=== PATIENT | female | born 1985 | race Two or more races ===

== ENCOUNTER 2023-04-20 05:19 | Day surgery (SDC) | payer MEDICARE, MEDICAID ==
[2023-04-18 14:43] LABS: BASOPHILS # (AUTO) 0.1 X10'3 (0-0.2); EOSINOPHILS # (AUTO) 0.1 X10'3 (0-0.9); EOSINOPHILS % (AUTO) 1.8 % (0-6); LYMPHOCYTES # (AUTO) 1.7 X10'3 (1.1-4.8); LYMPHOCYTES % (AUTO) 22.5 % (21-51); MEAN CORPUSCULAR HEMOGLOBIN 28.5 PG (27.0-31.0); MEAN CORPUSCULAR HGB CONC 31.7 g/dL (33.0-36.5); MEAN CORPUSCULAR VOLUME 89.9 FL (78-98); MEAN PLATELET VOLUME 8.1 FL (7.4-10.4); MONOCYTES # (AUTO) 0.6 X10'3 (0-0.9); MONOCYTES % (AUTO) 7.8 % (2-12); NEUTROPHILS # (AUTO) 5.1 X10'3 (1.8-7.7); NEUTROPHILS % (AUTO) 66.9 % (42-75); PRE OP HEMATOCRIT 33.1 % (35.0-45.0); PRE OP PLATELET COUNT 276 X10'3 (140-440); PRE OP WHITE BLOOD COUNT 7.7 10'3 (4.8-10.8); RED BLOOD COUNT 3.68 X10'6 (4.20-5.60); RED CELL DISTRIBUTION WIDTH 16.2 % (11.5-14.5)
[2023-04-18 14:47] LABS: PRE OP HEMOGLOBIN 10.5 g/dL (12.0-16.0)
[2023-04-18 14:53] LABS: ALBUMIN 3.3 G/DL (3.4-5.0); ALBUMIN/GLOBULIN RATIO 0.7 (1.1-1.5); ALKALINE PHOSPHATASE 145 IU/L (46-116); BLOOD UREA NITROGEN 40 MG/DL (7-18); BUN/CREATININE RATIO 22.6 (10.0-20.0); CHLORIDE 106 MMOL/L (99-107); CREATININE 1.77 MG/DL (0.40-0.90); PRE OP ALT 20 U/L (30-65); PRE OP ANION GAP 9 (8-16); PRE OP AST 17 U/L (10-37); PRE OP BILIRUB, TOTAL 0.4 MG/DL (0.0-1.0); PRE OP GLUCOSE 92 MG/DL (70-104); PRE OP POTASSIUM 4.3 MMOL/L (3.4-5.1); PRE OP SODIUM 139 MMOL/L (135-145); TOTAL CARBON DIOXIDE 24.3 MMOL/L (24-32); eGFR 32 ML/MIN
[~2023-04-20] VITALS: Ht 175.3 cm; Wt 71.9 kg
[2023-04-20] VITALS (13 sets, daily range): BP systolic 130–178; BP diastolic 93–108; PULSE 66–70; RESP 12–17; TEMP 97.2; O2SAT 94–100
[~2023-04-20 05:19] MED LIST: FAMO20TA8 PO; GABA300C PO; HYDR-4069 PO; INSU100I31 SQ; METO25TA6 PO; METO5TAB98 PO; MYCO250C46 PO; NOVLG SQ; PANT40TA54 PO; PRAV20TA4 PO; PRED5TAB PO; PROC10TA97 PO; TACR1CAP24 PO; VENL75CA61 PO; ringers solution, lacted 1,000 ML IV SCH
[2023-04-20] MEDS ORDERED: cefazolin 2gm/D5W 100mL 100 ML IV ONE (05:30)
[2023-04-20] MEDS ORDERED: DOCUMENT DATE & TIME OF BETA-BLOCKER PO ONE (05:30)
[2023-04-20] MEDS ORDERED: famotidine 20mg tablet PO ONE (05:30)
[2023-04-20] MEDS ORDERED: BUPIVAcaine/PF 2.5 mg/ml (0.25%) 30ml vial ONE (06:45)
[2023-04-20] MEDS ORDERED: bacitracin 15gm ointment TP ONE (06:45)
[2023-04-20 06:52] LABS: BILIRUBIN,URINE NEGATIVE (Neg); CLARITY,URINE CLEAR (Clear); COLOR,URINE STRAW (Yellow); GLUCOSE, URINE NEGATIVE (Neg); KETONES,URINE NEGATIVE (Neg); LEUKOCYTE ESTERASE ,URINE NEGATIVE (Neg); NITRITES, URINE NEGATIVE (Neg); OCCULT BLOOD,URINE TRACE-INTACT (Neg); PROTEIN,URINE 100 mg/dl (Neg); UROBILINOGEN,URINE 0.2 E.U/dL (0.2-1.0)
[2023-04-20 07:03] LABS: UA COLLECTION TYPE NON-SPECIFIED
[2023-04-20 07:04] LABS: BACTERIA,URINE NONE SEEN /HPF (Neg); MUCUS STRANDS NONE SEEN /LPF (Neg); RBC,URINE 0-2 /HPF (0-2); SQUAMOUS EPITHELIAL CELL,UR NONE SEEN /LPF (FEW); WBC,URINE 0-4 /HPF (0-4)
[2023-04-20] MEDS ORDERED: sevoflurane 250ml liquid IH ONE (07:22)
[2023-04-20] MEDS ORDERED: fentaNYL/PF 50MCG/1 ML 2ML syringe ONE (07:29)
[2023-04-20] MEDS ORDERED: ROPIVAcaine 0.5% (5mg/ml) 30ml vial ONE (07:30)
[2023-04-20] MEDS ORDERED: MIDAZolam 1 MG/ML 5ML VIAL ONE (07:30)
[2023-04-20] MEDS ORDERED: LIDOcaine 1%/PF 5ML 10 MG/ML VIAL ONE (08:01)
[2023-04-20] MEDS ORDERED: propofol inj 20 ML IV ONE (08:01)
[2023-04-20] MEDS ORDERED: dexamethasone sod phosphate 4mg/ml inj. ONE (08:02)
[2023-04-20] MEDS ORDERED: hydrocortisone sod succ/PF 100mg/2ml inj. ONE (08:02)
[2023-04-20] MEDS ORDERED: ringers solution, lacted 1,000 ML IV SCH (08:30)
[2023-04-20] MEDS ORDERED: vancomycin 1,000mg inj ONE (08:30)
[2023-04-20] MEDS ORDERED: proCHLORperazine 10 MG/2 ml inj IV PRN (08:30)
[2023-04-20] MEDS ORDERED: ondansetron/PF 4mg/2ml inj IV PRN (08:30)
[2023-04-20] MEDS ORDERED: morphine 2 MG/ML inj. syringe IV PRN (08:30)
[2023-04-20] MEDS ORDERED: morphine 4 MG/ML inj SYRINge IV PRN (08:30)
[2023-04-20] MEDS ORDERED: meperidine/PF 25mg/ml syringe IV PRN ×3 (08:30)
[2023-04-20] MEDS ORDERED: ondansetron/PF 4mg/2ml inj ONE (08:41)
--- NOTE | 2023-04-20 08:52 | NUR ---
Received from OR via [facility], accompanied by Anesthesiologist and report given by IMELDA Anesthesiologist. PATIENT WAKING UP, DENIES PAIN, V/S WNL, SCD ON, 20G TO LEFT FOREARM, RIGHT FOOT GHISLAINE WRAP DRESSING C/D/I. ICE AND ELEVATE RLE. Addendum: 04/20/23 at 0920 by Eulalio Abdalla RN Amended: Links added.
[2023-04-20] MEDS: hydrALAZINE 20mg/ml inj. IV PRN ×2 (09:13→09:34)
--- NOTE | 2023-04-20 10:02 | NUR ---
ALL DISCHARGE CRITERIA HAS BEEN MET. VSS, PAIN AT A TOLERABLE LEVEL, ABLE TO SAFELY AMBULATE AND TRANSFER SELF. IV TAKEN OUT WITHOUT ANY COMPLICATIONS. ALL DISCHARGE INSTRUCTIONS COVERED WITH PATIENT AND ALL QUESTIONS ANSWERED. PATIENT TAKEN OUT VIA WHEELCHAIR WITH ALL BELONGINGS TO PERSONAL VEHICLE WHERE FAMILY DROVE PATIENT HOME. Addendum: 04/20/23 at 1027 by Eulalio Abdalla RN Amended: Links added.
--- NOTE | 2023-04-20 11:05 | NUR ---
PATIENT CALLED BACK FROM HOME AND STATED THAT DRESSING IS SATURATED WITH BLOOD. RN NOTIFIED MD AND INSTRUCTED PATIENT TO REPLACE BLOODY DRESSING WITH NEW DRESSING.
== END 2023-04-20 10:02 | disposition home or self-care (01) ==
LOC: PAS 05:19
PROVIDERS: ATTEND Podiatrist Foot & Ankle Surgery
DX: E10.69 Type 1 diabetes mellitus with other specified complication (principal); M86.671 Other chronic osteomyelitis, right ankle and foot; M86.171 Other acute osteomyelitis, right ankle and foot; E10.610 Type 1 diabetes mellitus with diabetic neuropathic arthropathy; E10.42 Type 1 diabetes mellitus with diabetic polyneuropathy; I25.2 Old myocardial infarction; E78.5 Hyperlipidemia, unspecified; E10.22 Type 1 diabetes mellitus with diabetic chronic kidney disease; I12.0 Hypertensive chronic kidney disease with stage 5 chronic kidney disease or end stage renal disease; N18.6 End stage renal disease; F32.A Depression, unspecified; D64.9 Anemia, unspecified; G89.18 Other acute postprocedural pain; Z79.899 Other long term (current) drug therapy; Z79.4 Long term (current) use of insulin; Z79.82 Long term (current) use of aspirin; Z87.891 Personal history of nicotine dependence; Z98.890 Other specified postprocedural states; Z94.0 Kidney transplant status; Z95.810 Presence of automatic (implantable) cardiac defibrillator
CPT/HCPCS: 28810; 36415; 64445; 80053; 81001; 82948; 85025; 87070; 87075; A6222; J0360; J0690; J1100; J1720; J2250; J2405; J2704; J2795; J3010; J3370; J3490; J7030; J7120; Z7506; Z7508; Z7512; A4618; A6449; A7000

== ENCOUNTER 2024-07-30 15:01 | Emergency (ER) | payer MEDICARE, MEDICAID ==
[~2024-07-30] VITALS: Ht 175.3 cm; Wt 70.0 kg
[~2024-07-30 15:01] MED LIST changes: -HYDR-4069 PO; +HYDR25TA90 PO; -ringers solution, lacted 1,000 ML IV SCH
[2024-07-30 15:14] VITALS: BP 176/81; PULSE 65; RESP 16; TEMP 97.3; O2SAT 99
[2024-07-30 16:02] LABS: BASOPHILS # (AUTO) 0.1 X10'3 (0-0.2); BASOPHILS % (AUTO) 0.8 % (0-1); EOSINOPHILS % (AUTO) 0.2 % (0-6); HEMATOCRIT 34.5 % (35.0-45.0); HEMOGLOBIN 10.7 g/dl (12.0-16.0); LYMPHOCYTES # (AUTO) 0.9 X10'3 (1.1-4.8); LYMPHOCYTES % (AUTO) 9.9 % (21-51); MEAN CORPUSCULAR HEMOGLOBIN 29.4 PG (27.0-31.0); MEAN CORPUSCULAR HGB CONC 30.9 g/dL (33.0-36.5); MEAN CORPUSCULAR VOLUME 95.2 FL (78-98); MEAN PLATELET VOLUME 8.8 FL (7.4-10.4); MONOCYTES # (AUTO) 1.1 X10'3 (0-0.9); NEUTROPHILS % (AUTO) 77.1 % (42-75); PLATELET COUNT 150 X10'3 (140-440); RED BLOOD COUNT 3.63 X10'6 (4.20-5.60); RED CELL DISTRIBUTION WIDTH 19.9 % (11.5-14.5); WHITE BLOOD COUNT 9.1 X10'3 (4.5-11.0)
[2024-07-30 16:23] LABS: LACTIC SEPSIS 2.1 MMOL/L (0.4-2.0)
[2024-07-30 16:32] LABS: ANISOCYTOSIS 2+; PLATELET ESTIMATE NORMAL
[2024-07-30 16:33] LABS: POLYCHROMASIA FEW
[2024-07-30 16:34] LABS: ELLIPTOCYTES FEW; SCHISTOCYTES FEW
[2024-07-30 16:51] LABS: AMMONIA < 10 UMOL/L (11-32)
[2024-07-30 17:48] LABS: ALANINE AMINOTRANSFERASE 34 U/L (12-78); ALBUMIN 2.8 G/DL (3.4-5.0); ALBUMIN/GLOBULIN RATIO 0.6 (1.1-1.5); ALKALINE PHOSPHATASE 147 IU/L (46-116); ANION GAP 12 (8-16); ASPARTATE AMINO TRANSFERASE 24 U/L (10-37); BILIRUBIN,TOTAL 1.6 MG/DL (0.1-1.0); BLOOD UREA NITROGEN 34 MG/DL (7-18); BUN/CREATININE RATIO 6.8 (10.0-20.0); CALCIUM 8.6 MG/DL (8.5-10.1); CHLORIDE 98 MMOL/L (99-107); CREATININE 4.97 MG/DL (0.40-0.90); ETHANOL < 10 MG/DL (<10); GLUCOSE 238 MG/DL (70-104); LIPASE 124 U/L (16-77); SODIUM 136 MMOL/L (135-145); TOTAL CARBON DIOXIDE 26.1 MMOL/L (24-32); TOTAL PROTEIN 7.6 G/DL (6.4-8.2); eCRCL 16 ML/MIN; eGFR 10 ML/MIN
== END 2024-07-30 18:34 | disposition home or self-care (01) ==
LOC: ER 15:02
DX: R41.0 Disorientation, unspecified (principal); I50.9 Heart failure, unspecified; Z95.1 Presence of aortocoronary bypass graft; Z79.4 Long term (current) use of insulin; Z79.899 Other long term (current) drug therapy
CPT/HCPCS: 36415; 70450; 80053; 82140; 83605; 83690; 85008; 85025; 93005; 99284; G0480; 80320